=== PATIENT | male | born 1995 | race Two or more races ===

== ENCOUNTER 2018-05-03 22:57 | Emergency (ER) | payer SELFPAY ==
[~2018-05-03] VITALS: Ht 170.2 cm; Wt 52.2 kg
[2018-05-03 23:23] VITALS: BP 116/68
[2018-05-04] MEDS ORDERED: ONDANSETRON ODT 4 MG TAB PO ONE (02:00)
[2018-05-04] MEDS ORDERED: MEPERIDINE HCL (50 MG/ML) 1 ML VIAL IM ONE (02:00)
[2018-05-04] MEDS ORDERED: MEPERIDINE HCL (25 MG/ML) 1ML VIAL IM ONE (02:30)
== END 2018-05-04 03:14 | disposition home or self-care (01) ==
LOC: ER 22:57
DX: S42.002A Fracture of unspecified part of left clavicle, initial encounter for closed fracture (principal); R51 Headache; V49.9XXA Car occupant (driver) (passenger) injured in unspecified traffic accident, initial encounter; Y93.89 Activity, other specified; Y92.89 Other specified places as the place of occurrence of the external cause; Y99.8 Other external cause status
CPT/HCPCS: 70450; 72125; 72128; 72131; 73030; 74176; 96372; 99284; Q0162